=== PATIENT | female | born 1945 | race Caucasian/White ===

== ENCOUNTER 2016-11-11 08:23 | Emergency (ER) | payer MEDICARE, OTHER ==
[2016-11-11 08:57] VITALS: BP 149/66
--- NOTE | 2016-11-11 08:57 | ED Physician Documentation ---
Female Urogenital Problems - HISTORIAN Historian: patient - HPI Stated Complaint: burning urination Chief Complaint: Female Urogenital Problems Additional Information: since 299 today Onset: hours Severity: mild Further Comments: no - Vaginal Bleeding Sexual History: active Contraceptive: none - Associated Symptoms Urinary Symptoms: frequent urination, discomfort w/ urination, burning w/ urination, urgency w/ urination Discharge: denies: vaginal discharge - ROS CONST: none GI/: denies: nausea, vomiting CVS/RESP: none EYES/ENT: none NEURO/PSYCH: none MS/SKIN/LYMPH: none - PAST HX Past History: none Other History: bladder infection, hypertension Surgeries/Procedures: none Immunizations: UTD Allergies/Adverse Reactions: Allergies Allergy/AdvReac Type Severity Reaction Status Date / Time azithromycin Allergy Verified 11/11/16 08:48 thiethylperazine maleate Allergy Verified 11/11/16 08:48 [From Torecan] tape AdvReac Itchy Skin Uncoded 11/11/16 08:48 Home Medications: Ambulatory Orders Medication Instructions Recorded Atenolol [Atenolol] 50 mg PO DAILY 12/10/15 Levothyroxine Sodium [Synthroid] 125 mcg PO DAILY 12/10/15 Lisinopril [Zestril] 40 mg PO DAILY 12/10/15 Simvastatin [Simvastatin] 20 mg PO HS 12/10/15 glyBURIDE [Diabeta] 5 mg PO DAILY 12/10/15 - SOCIAL HX Smoking History: non-smoker Alcohol Use: none Drug Use: none - FAMILY HX Family History: none - VITAL SIGNS Vital Signs: Vital Signs Temp Pulse Resp BP Pulse Ox 160/90 12/10/15 11:34 - REVIEWED ASSESSMENTS Nursing Assessment Reviewed: Yes Vitals Reviewed: Yes ED Results Lab/Radiology - Lab Results Lab Results: nitrite + 3+ blood Female Urogenital Problems - EXAM General Appearance: no acute distress EENT: ENT inspection normal, no signs of dehydration Neck: nml inspection Respiratory: no resp. distress CVS: reg rate & rhythm Abdomen: soft, non-tender Back: non-tender Skin: color nml, no rash Extremities: non-tender Neuro: oriented X3 Discharge Clincal Impression: UTI (urinary tract infection) Qualifiers: Urinary tract infection type: acute cystitis Hematuria presence: with hematuria Qualified Code(s): N30.01 - Acute cystitis with hematuria Home Medications: Ambulatory Orders Atenolol [Atenolol] 50 mg PO DAILY 12/10/15 Levothyroxine Sodium [Synthroid] 125 mcg PO DAILY 12/10/15 Lisinopril [Zestril] 40 mg PO DAILY 12/10/15 Simvastatin [Simvastatin] 20 mg PO HS 12/10/15 glyBURIDE [Diabeta] 5 mg PO DAILY 12/10/15 Condition: Good Disposition: 01 HOME, SELF-CARE Decision to Admit: NO Date of Decison to Admit: 11/11/16 Decision Time: 09:00
[2016-11-12 05:52] LABS: APPEARANCE,URINE CLEAR (CLEAR); COLOR,URINE RED (YELLOW); OCCULT BLOOD,URINE 3+ (NEGATIVE); PH URINE 8.5 (5.0 - 8.0)
== END 2016-11-11 09:07 | disposition home or self-care (01) ==
LOC: ED 08:23
DX: N30.01 Acute cystitis with hematuria (principal)
CPT/HCPCS: 81002; 87086; 99283

== ENCOUNTER 2017-02-20 06:12 | Emergency (ER) | payer MEDICARE, OTHER ==
[2017-02-20] MEDS ORDERED: 0.9 % SODIUM CHLORIDE 1,000 ML IV ONE (06:27)
[2017-02-20 07:02] LABS: APPEARANCE,URINE CLOUDY (CLEAR); COLOR,URINE YELLOW (YELLOW); OCCULT BLOOD,URINE 2+ (NEGATIVE); UROBILINOGEN URINE 0.2 Eu (0.2-1.0)
[2017-02-20 07:04] LABS: BASOPHILS % 0.5 (0.0-1.5); EOSINOPHILS % 1.5 % (0.0-6.8); MEAN CORPUSCULAR HEMOGLOBIN 30.7 pg (28.0-34.0); MEAN CORPUSCULAR VOLUME 91.8 fl (80.0-100.0); MONOCYTES % 3.6 % (0.0-11.0); NEUTROPHILS # 7.6 # k/uL (1.4-7.7)
[2017-02-20 07:15] LABS: eGFR (African) > 60; eGFR (Non-African) > 60
--- NOTE | 2017-02-20 07:27 | ED Physician Documentation ---
Female Urogenital Problems - HISTORIAN Historian: patient - HPI Stated Complaint: abd pain/back pain/diarrhea Chief Complaint: Female Urogenital Problems Additional Information: symptoms began 4 days ago. she has freq UTI's. no other complaints Onset: days ago Severity: mild Location of Pain: pelvic pain, low back pain, flank pain Further Comments: no - Associated Symptoms Urinary Symptoms: frequent urination, discomfort w/ urination, burning w/ urination, urgency w/ urination Discharge: denies: vaginal discharge, vaginal fluid leakage - ROS CONST: no problems GI/: diarrhea. denies: nausea, vomiting CVS/RESP: none EYES/ENT: none NEURO/PSYCH: none MS/SKIN/LYMPH: none - PAST HX Past History: none Other History: bladder infection, diabetes Type 2, hypertension Surgeries/Procedures: none Immunizations: UTD Allergies/Adverse Reactions: Allergies Allergy/AdvReac Type Severity Reaction Status Date / Time azithromycin Allergy Verified 02/20/17 06:36 thiethylperazine maleate Allergy Verified 02/20/17 06:36 [From Torecan] tape AdvReac Itchy Skin Uncoded 02/20/17 06:36 Home Medications: Ambulatory Orders Medication Instructions Recorded Atenolol [Atenolol] 50 mg PO DAILY 12/10/15 Levothyroxine Sodium [Synthroid] 125 mcg PO DAILY 12/10/15 Lisinopril [Zestril] 40 mg PO DAILY 12/10/15 Simvastatin [Simvastatin] 20 mg PO HS 12/10/15 glyBURIDE [Diabeta] 5 mg PO DAILY 12/10/15 - SOCIAL HX Smoking History: non-smoker Alcohol Use: none Drug Use: none - FAMILY HX Family History: none - VITAL SIGNS Vital Signs: Vital Signs Temp Pulse Resp BP Pulse Ox 98.6 F 61 18 156/59 96 02/20/17 06:32 02/20/17 06:32 02/20/17 06:32 02/20/17 06:32 02/20/17 06:32 - REVIEWED ASSESSMENTS Nursing Assessment Reviewed: Yes Vitals Reviewed: Yes ED Results Lab/Radiology - Lab Results Lab Results: Lab Results 02/20/17 02/20/17 02/20/17 06:50 06:50 06:25 WBC 10.35 K/ul K/ul (4.00-12.00) RBC 4.55 M/ul M/ul (3.90-5.20) Hgb 14.0 g/dL g/dL (12.0-16.0) Hct 41.8 % % (34.5-46.5) MCV 91.8 fl fl (80.0-100.0) MCH 30.7 pg pg (28.0-34.0) MCHC 33.5 g/dL g/dL (30.0-36.0) RDW 13.8 % % (11.3-14.3) Plt Count 251 K/mm3 K/mm3 (130-400) Neut % (Auto) 73.4 % % (39.0-79.0) Lymph % (Auto) 20.2 % % (16.0-50.0) [place] % (Auto) 3.6 % % (0.0-11.0) Eos % (Auto) 1.5 % % (0.0-6.8) Baso % (Auto) 0.5 (0.0-1.5) Neut # (Auto) 7.6 # k/uL # k/uL (1.4-7.7) Lymph # (Auto) 2.1 # k/uL # k/uL (0.6-4.0) [place] # (Auto) 0.4 # k/uL # k/uL (0.0-0.9) Eos # (Auto) 0.2 # k/uL # k/uL (0.0-0.6) Baso # (Auto) 0.1 # k/uL # k/uL (0.0-0.5) Reactive Lymphs % 0.8 % % (0.0-5.0) Reactive Lymphs # 0.1 # k/uL # k/uL (0.0-0.8) Sodium 136 mmol/L mmol/L (136-145) Potassium 3.9 mmol/L mmol/L (3.5-5.0) Chloride 102 mmol/L mmol/L (98-110) Carbon Dioxide 29 mmol/L mmol/L (20-32) BUN 11 mg/dL mg/dL (10-26) Creatinine 0.7 mg/dL mg/dL (0.4-1.5) Estimated Creat Clear 178 Est GFR ( Amer) > 60 (60 - ) Est GFR (Non-Af Amer) > 60 (60 - ) Glucose 157 mg/dL H mg/dL (70-99) Calcium 9.5 mg/dL mg/dL (8.5-10.5) Total Bilirubin 0.9 mg/dL mg/dL (0.2-1.2) AST 21 U/L U/L (0-41) ALT 14 U/L U/L (0-45) Alkaline Phosphatase 73 U/L U/L (46-116) Total Protein 7.0 g/dL g/dL (6.0-8.5) Albumin 4.3 g/dL g/dL (3.0-5.5) Amylase 37 U/L U/L (20-104) Urine Color Yellow (YELLOW) Urine Appearance Cloudy H (CLEAR) Urine pH 7.0 (5.0 - 8.0) Ur Specific [place] 1.020 (1.010-1.030) Urine Protein 2+ mg/dL H mg/dL (NEGATIVE) Urine Ketones Negative mg/dL mg/dL (NEGATIVE) Urine Occult Blood 2+ H (NEGATIVE) Urine Nitrite Negative (NEGATIVE) Urine Bilirubin Negative (NEGATIVE) Urine Urobilinogen 0.2 Eu Eu (0.2-1.0) Ur Leukocyte Esterase 1+ H (NEGATIVE) Urine Glucose Negative mg/dL mg/dL (NEGATIVE) - Orders Orders: ED Orders Category Date Time Status Place IV Lock 1T Care 02/20/17 06:27 Active AMYLASE Routine Lab 02/20/17 06:50 Completed CBC/PLATELET/DIFF Routine Lab 02/20/17 06:50 Completed CMP Routine Lab 02/20/17 06:50 Completed UA MACRO DIP ONLY Routine Lab 02/20/17 06:25 Completed URINE CULTURE Routine Lab 02/20/17 06:25 Received 0.9 % Sodium Chloride [Normal Saline] 1,000 ml Med 02/20/17 06:27 Active IV Q1H Female Urogenital Problems - EXAM General Appearance: no acute distress, alert EENT: ENT inspection normal Neck: nml inspection Respiratory: no resp. distress Abdomen: soft, non-tender Back: non-tender Skin: color nml, no rash, warm,dry Extremities: non-tender Neuro: oriented X3, mood/affect nml, cognition normal Discharge Clincal Impression: UTI (urinary tract infection) Qualifiers: Urinary tract infection type: acute cystitis Hematuria presence: without hematuria Qualified Code(s): N30.00 - Acute cystitis without hematuria Referrals: Uriel Nolan MD [Primary Care Provider] - 2 Days Home Medications: Ambulatory Orders Atenolol [Atenolol] 50 mg PO DAILY 12/10/15 Levothyroxine Sodium [Synthroid] 125 mcg PO DAILY 12/10/15 Lisinopril [Zestril] 40 mg PO DAILY 12/10/15 Simvastatin [Simvastatin] 20 mg PO HS 12/10/15 glyBURIDE [Diabeta] 5 mg PO DAILY 12/10/15 Condition: Good Disposition: 01 HOME, SELF-CARE Decision to Admit: NO Date of Decison to Admit: 02/20/17 Decision Time: 07:27
[2017-02-20 07:38] VITALS: BP 130/68
== END 2017-02-20 07:36 | disposition home or self-care (01) ==
LOC: ED 06:12
DX: N30.00 Acute cystitis without hematuria (principal)
CPT/HCPCS: 80053; 81002; 82150; 85025; 87086; J7030; 87186; 96360; 99283; S1016